=== PATIENT | female | born 1995 | race African-American/Black ===

== ENCOUNTER 2020-02-28 16:13 | Emergency (ER) | payer SELFPAY ==
[~2020-02-28] VITALS: Ht 160 cm; Wt 54.0 kg
[2020-02-28] MEDS ORDERED: KETOROLAC TROMETHAMINE 30 MG/ML VIAL IV STA (16:39)
[2020-02-28] MEDS ORDERED: SODIUM CHLORIDE FLUSH 10 ML SYR INJ PRN (16:45)
[2020-02-28] MEDS ORDERED: KETOROLAC TROMETHAMINE 30 MG/ML VIAL ONE (16:56)
[2020-02-28] MEDS ORDERED: CYCLOBENZAPRINE HCL 10 MG TAB PO ONE (17:45)
[2020-02-28] MEDS ORDERED: METHYLPREDNISOLONE SOD SUCC 125 MG/2ML VIAL IV ONE (17:45)
[2020-02-28] MEDS ORDERED: CYCLOBENZAPRINE5 MG PO (17:56)
[2020-02-28] MEDS ORDERED: PREDNISONE20 MG PO (17:56)
[2020-02-28] MEDS ORDERED: BACTRIM DS TAB1 EACH PO (17:58)
[2020-02-28] MEDS ORDERED: METHYLPREDNISOLONE SOD SUCC 125 MG/2ML VIAL ONE (17:59)
[2020-02-28 18:04] VITALS: BP 118/76
== END 2020-02-28 18:11 | disposition home or self-care (01) ==
LOC: FSED 16:45
DX: M54.6 Pain in thoracic spine (principal); S29.012A Strain of muscle and tendon of back wall of thorax, initial encounter; N39.0 Urinary tract infection, site not specified; D64.9 Anemia, unspecified; F17.210 Nicotine dependence, cigarettes, uncomplicated
CPT/HCPCS: 71046; 80048; 81003; 81025; 85025; 85379; 96374; 96375; 99284; J1885; J2930